=== PATIENT | male | born 1955 | race Native Hawaiian/Other Pacific Islander ===

== ENCOUNTER 2016-06-10 10:03 | Emergency (ER) | payer BC, OTHER ==
[~2016-06-10] VITALS: Ht 167.6 cm; Wt 83.0 kg
[2016-06-10] MEDS ORDERED: ALBUTEROL FS 2.5 MG/3 ML VIAL.NEB ONE (10:17)
[2016-06-10] MEDS ORDERED: IPRATROPIUM NEB FS 0.5 MG/2.5 ML AMPUL.NEB ONE (10:18)
[2016-06-10] MEDS ORDERED: ALBUTEROL FS 2.5 MG/3 ML VIAL.NEB NEB ONE (10:30)
[2016-06-10] MEDS ORDERED: IPRATROPIUM NEB FS 0.5 MG/2.5 ML AMPUL.NEB NEB ONE (10:30)
[2016-06-10] MEDS ORDERED: predniSONE 20 MG TABLET PO ONE (10:30)
[2016-06-10] MEDS ORDERED: predniSONE 20 MG TABLET ONE (10:37)
[2016-06-10 10:58] VITALS: BP 128/70
== END 2016-06-10 10:59 | disposition home or self-care (01) ==
LOC: ER 10:05
DX: J45.901 Unspecified asthma with (acute) exacerbation (principal); F10.20 Alcohol dependence, uncomplicated
CPT/HCPCS: 94640; 99283; A4606; J7512; Z7610

== ENCOUNTER 2016-07-06 06:23 | Emergency (ER) | payer BC, OTHER ==
[~2016-07-06] VITALS: Ht 172.7 cm; Wt 77.1 kg
[2016-07-06] MEDS ORDERED: ALBUTEROL FS 2.5 MG/3 ML VIAL.NEB ONE (06:40)
[2016-07-06] MEDS ORDERED: IPRATROPIUM NEB FS 0.5 MG/2.5 ML AMPUL.NEB ONE (06:40)
[2016-07-06] MEDS ORDERED: predniSONE 20 MG TABLET ONE (06:42)
[2016-07-06] MEDS ORDERED: predniSONE 20 MG TABLET PO ONE (07:00)
[2016-07-06] MEDS ORDERED: IPRATROPIUM NEB FS 0.5 MG/2.5 ML AMPUL.NEB NEB ONE (07:00)
[2016-07-06] MEDS ORDERED: ALBUTEROL FS 2.5 MG/3 ML VIAL.NEB NEB ONE (07:00)
[2016-07-06 07:34] VITALS: BP 148/72
== END 2016-07-06 07:35 | disposition home or self-care (01) ==
LOC: ER 06:24
DX: J45.901 Unspecified asthma with (acute) exacerbation (principal); C18.9 Malignant neoplasm of colon, unspecified
CPT/HCPCS: 94640 ×2; 99284; A4606; J7512; Z7610

== ENCOUNTER → 2016-07-24 | Outpatient (CLI) | payer BC, OTHER ==
[2016-07-24 09:17] LABS: BASOPHILS % (AUTO) 0.3 % (0.0-2.0); EOSINOPHILS # (AUTO) 0.5 /CMM (0.0-0.7); EOSINOPHILS % (AUTO) 4.8 % (0.0-6.0); HEMATOCRIT 45 % (39-51); LYMPHOCYTES # (AUTO) 1.8 /CMM (0.8-4.8); LYMPHOCYTES % (AUTO) 17.6 % (20.0-44.0); MEAN CORPUSCULAR HEMOGLOBIN 30 PG (26.0-33.0); MEAN CORPUSCULAR HGB CONC 33 g/dl (31.0-36.0); MEAN CORPUSCULAR VOLUME 91 fL (80-96); MONOCYTES # (AUTO) 0.7 /CMM (0.1-1.30); MONOCYTES % (AUTO) 7.4 % (2.0-12.0); NEUTROPHILS % (AUTO) 69.9 % (43.0-81.0); PLATELET COUNT (AUTO) 288 /CMM (150-450); RDW COEFFICIENT OF VARIATION 13.3 (11.5-15.0); RED BLOOD CELL COUNT(AUTO) 4.95 MIL/uL (4.5-6.0)
[2016-07-24 09:30] LABS: ALBUMIN 3.7 g/dL (3.4-5.0); CALCIUM, SERUM 9.5 mg/dL (8.5-10.1); POTASSIUM 3.9 mmol/L (3.5-5.1); TOTAL PROTEIN, SERUM 7.7 g/dL (6.4-8.2)
== END ==
LOC: LAB 08:10
DX: E78.5 Hyperlipidemia, unspecified (principal); R73.9 Hyperglycemia, unspecified; R53.83 Other fatigue
CPT/HCPCS: 36415; 80053-TC; 80061-TC; 85025-TC

== ENCOUNTER 2016-10-28 07:10 | Outpatient (CLI) | payer BC, OTHER ==
[2016-10-28 08:14] LABS: ALBUMIN 3.8 g/dL (3.4-5.0); BILIRUBIN,TOTAL 0.8 mg/dL (0.2-1.0); CALCIUM, SERUM 9.2 mg/dL (8.5-10.1); POTASSIUM 3.5 mmol/L (3.5-5.1)
== END 2016-10-28 23:59 | disposition home or self-care (01) ==
LOC: LAB 07:10
DX: R73.9 Hyperglycemia, unspecified (principal); E78.5 Hyperlipidemia, unspecified
CPT/HCPCS: 36415; 80053-TC; 80061-TC

== ENCOUNTER 2016-12-09 15:26 | Emergency (ER) | payer BC, OTHER ==
[~2016-12-09] VITALS: Ht 167.6 cm; Wt 83.9 kg
[2016-12-09 15:30] VITALS: BP 145/98
[2016-12-09] MEDS ORDERED: KETOROLAC TROMETHAMINE INJ 60 MG/2 ML VIAL IM ONE ×2 (16:00)
== END 2016-12-09 16:44 | disposition home or self-care (01) ==
LOC: ER 15:32
DX: M54.5 Low back pain (principal); G89.29 Other chronic pain; E11.9 Type 2 diabetes mellitus without complications; I10 Essential (primary) hypertension; J45.909 Unspecified asthma, uncomplicated; Z85.038 Personal history of other malignant neoplasm of large intestine; X58.XXXA Exposure to other specified factors, initial encounter; Y93.F2 Activity, caregiving, lifting; Y92.89 Other specified places as the place of occurrence of the external cause; Y99.8 Other external cause status
CPT/HCPCS: A4606; J1885; Z7610

== ENCOUNTER 2017-01-07 08:29 | Outpatient (CLI) | payer OTHER | END 2017-01-07 23:59 | disposition home or self-care (01) | LOC: MRI 08:29 | DX: S33.5XXD Sprain of ligaments of lumbar spine, subsequent encounter (principal); M54.32 Sciatica, left side; M47.9 Spondylosis, unspecified; X58.XXXD Exposure to other specified factors, subsequent encounter | CPT/HCPCS: 72148-TC ==

== ENCOUNTER 2017-01-28 09:26 | Outpatient (CLI) | payer BC ==
[2017-01-28 10:11] LABS: BILIRUBIN,TOTAL 0.6 mg/dL (0.2-1.0); CALCIUM, SERUM 8.8 mg/dL (8.5-10.1); POTASSIUM 4.3 mmol/L (3.5-5.1); TOTAL PROTEIN, SERUM 8.1 g/dL (6.4-8.2)
== END 2017-01-28 23:59 | disposition home or self-care (01) ==
LOC: LAB 09:26
DX: E11.9 Type 2 diabetes mellitus without complications (principal)
CPT/HCPCS: 36415; 80053-TC